=== PATIENT | female | born 1950 | race Caucasian/White ===

== ENCOUNTER → 2017-02-16 | Outpatient (CLI) | payer OTHER | END | disposition home or self-care (01) | DX: M17.11 Unilateral primary osteoarthritis, right knee (principal); R26.2 Difficulty in walking, not elsewhere classified; M25.561 Pain in right knee; M25.661 Stiffness of right knee, not elsewhere classified; M62.81 Muscle weakness (generalized) | CPT/HCPCS: 97110 GP; 97150 GO; 97161 GP; 97165 GO ==

== ENCOUNTER 2017-03-15 22:07 | Inpatient (IN) | payer OTHER ==
[~2017-03-15] VITALS: Ht 148.6 cm; Wt 50.9 kg
[~2017-03-15 22:07] MED LIST: ASPIR 8181 M1 PO; CELEXA20 MG PO; ELAVIL10 MG PO; ESTRACE1 MG PO; IRON325 M1 PO; ZESTORETIC 20-1 EAC2 PO; ZOCOR20 MG PO
[2017-03-16 07:36] VITALS: BP 155/66
[2017-03-16 14:52] VITALS: BP 128/61
[2017-03-16 20:12] VITALS: BP 115/55
[2017-03-16 23:51] VITALS: BP 134/63
[2017-03-17 04:17] VITALS: BP 138/63
[2017-03-17 05:46] LABS: HEMATOCRIT 29.4 % (36.0-46.0); MCV 99.3 FL (83-99)
[2017-03-17 06:11] LABS: ANION GAP 6 MEQ/L (2-14); CHLORIDE 105 MEQ/L (99-109); GFR ESTIMATE (CALCULATED) > 59 mL/min/; GLUCOSE 103 mg/dL (70-99); POTASSIUM 4.2 MEQ/L (3.7-5.4); SAMPLE HEMOLYSIS CHECK 0; SAMPLE ICTERIC CHECK 0; SAMPLE LIPEMIA CHECK 0; SODIUM 137 MEQ/L (136-147); UREA NITROGEN (BUN) 12 mg/dL (9-23)
[2017-03-17 08:06] VITALS: BP 91/50
[2017-03-17 12:00] VITALS: BP 99/44
[2017-03-17 15:39] VITALS: BP 102/54
[2017-03-17 19:52] VITALS: BP 123/56
[2017-03-18 00:23] VITALS: BP 98/51
[2017-03-18 04:10] VITALS: BP 112/56
[2017-03-18 05:33] LABS: HEMATOCRIT 29.3 % (36.0-46.0); MCV 102.4 FL (83-99)
[2017-03-18 08:03] VITALS: BP 115/55
[2017-03-18] MEDS ORDERED: ELIQUIS2.5 MG PO (10:56)
[2017-03-18] MEDS ORDERED: HYDROCODON-ACE1 EAC7 PO (10:56)
[2017-03-18 12:33] VITALS: BP 162/68
== END 2017-03-18 15:25 | DRG 470 ==
LOC: ENRESERV 22:07 → CANRESERV 22:07 → ENRESERV 22:08 → 3WEST 03-16 06:44 → 2SOUTH 03-16 06:44 → 3WEST 03-16 14:25 → 2SOUTH 03-16 15:37 → 3WEST 03-18 15:25
PROVIDERS: Orthopaedic Surgery
PROC: 0SRC0J9 Replacement of Right Knee Joint with Synthetic Substitute, Cemented, Open Approach (ICD-10-PCS; principal; 2017-03-16)
DX: M17.11 Unilateral primary osteoarthritis, right knee (principal); I11.0 Hypertensive heart disease with heart failure; E78.5 Hyperlipidemia, unspecified; F32.9 Major depressive disorder, single episode, unspecified; Z79.82 Long term (current) use of aspirin; Z87.891 Personal history of nicotine dependence; Z90.710 Acquired absence of both cervix and uterus; Z82.49 Family history of ischemic heart disease and other diseases of the circulatory system; Z82.5 Family history of asthma and other chronic lower respiratory diseases; Z83.3 Family history of diabetes mellitus
CPT/HCPCS: 80048; 85014; 85018; 94799; C1713; J0171; J0690; J1885; J2405; J2765; J3010; J7050; J7120; S0020